=== PATIENT | female | born 2000 | race African-American/Black ===

== ENCOUNTER 2022-09-23 21:23 | Emergency (ER) | payer BC, OTHER ==
[2022-09-23 21:41] VITALS: BP 124/84; PULSE 97; RESP 20; TEMP 98.1; BMI 19.3
[2022-09-23] MEDS ORDERED: ACETAMINOPHEN 325 MG TABLET (FP) PO ONE (22:13)
[2022-09-23] MEDS ORDERED: ACETAMINOPHEN 325 MG TABLET (FP) ONE (22:46)
[2022-09-23 23:43] LABS: EPI CELLS 8 /uL (0-25.1); HCG,QUALITATIVE URINE Negative; HYALINE CASTS 0 /uL (0-3.1); PH,URINE 7.5 (5.0-8.0); URINE APPEARANCE CLEAR; URINE BACTERIA 30 /uL (0-1359); URINE BILIRUBIN NEGATIVE (NEGATIVE); URINE COLOR ORANGE; URINE GLUCOSE (UA) NEGATIVE (NEGATIVE); URINE KETONE NEGATIVE (NEGATIVE); URINE LEUK ESTERASE NEGATIVE (NEGATIVE); URINE NITRITE NEGATIVE (NEGATIVE); URINE PROTEIN TRACE (NEGATIVE); URINE RBC 3807 /uL (0-23.9); URINE WBC 10 /uL (0-25.8)
== END 2022-09-24 00:24 | disposition home or self-care (01) ==
LOC: JER 21:23
DX: N93.9 Abnormal uterine and vaginal bleeding, unspecified (principal)
CPT/HCPCS: 36415; 76830-TC; 81003; 84703; 87086; 87491; 87591; 99284-25

== ENCOUNTER 2023-01-02 23:00 | Emergency (ER) | payer OTHER ==
[2023-01-02 23:04] VITALS: BMI 19.8
[2023-01-03 01:43] VITALS: BP 120/77; PULSE 115; RESP 18
[2023-01-03] MEDS ORDERED: ACETAMINOPHEN 325 MG TABLET (FP) PO ONE (01:46)
[2023-01-03] MEDS ORDERED: ACETAMINOPHEN 325 MG TABLET (FP) ONE (01:48)
[2023-01-03] MEDS ORDERED: DEXAMETHASONE 4 MG TABLET (FP) PO ONE ×2 (02:01)
[2023-01-03] MEDS ORDERED: DEXAMETHASONE 4 MG TABLET (FP) ONE (02:04)
[2023-01-03] MEDS ORDERED: PENICILLIN G BENZATHINE 1,200,000 UNIT/2 ML PFS IM ONE ×2 (03:31→03:47)
[2023-01-03 03:53] VITALS: TEMP 99.3
== END 2023-01-03 03:56 | disposition home or self-care (01) ==
LOC: JER 23:00 → JERFT 23:00 → JER 01-03 03:56
DX: J02.0 Streptococcal pharyngitis (principal); Z20.822 Contact with and (suspected) exposure to COVID-19
CPT/HCPCS: 0241U-QW; 87070; 87077; 87651; 99284-25

== ENCOUNTER 2024-01-24 11:18 | Emergency (ER) | payer OTHER ==
[2024-01-24 11:26] VITALS: BP 121/76; PULSE 67; RESP 18; TEMP 98.9; BMI 21.7
[2024-01-24] MEDS ORDERED: FAMOTIDINE 20 MG TABLET ONE (12:17)
[2024-01-24] MEDS ORDERED: ACETAMINOPHEN 325 MG TABLET (FP) ONE (12:17)
[2024-01-24] MEDS ORDERED: MAG HYDROX/AL HYDROX/SIMETH 30 ML UNIT-DOSE CUP ONE ×2 (12:18)
[2024-01-24] MEDS: MAG HYDROX/AL HYDROX/SIMETH 30 ML UNIT-DOSE CUP PO ONE (12:30)
[2024-01-24] MEDS: FAMOTIDINE 20 MG TABLET PO ONE (12:30)
[2024-01-24] MEDS: ACETAMINOPHEN 500 MG TABLET (FP) PO ONE (12:30)
[2024-01-24] MEDS: ONDANSETRON *ODT* 4 MG TABLET SL ONE (12:31)
[2024-01-24 12:41] LABS: EPI CELLS 18 /uL (0-25.1); HYALINE CASTS 0 /uL (0-3.1); URINE APPEARANCE CLEAR; URINE BACTERIA 25 /uL (0-1359); URINE BILIRUBIN NEGATIVE (NEGATIVE); URINE COLOR YELLOW; URINE GLUCOSE (UA) NEGATIVE (NEGATIVE); URINE KETONE NEGATIVE (NEGATIVE); URINE LEUK ESTERASE NEGATIVE (NEGATIVE); URINE NITRITE NEGATIVE (NEGATIVE); URINE PROTEIN NEGATIVE (NEGATIVE); URINE RBC 120 /uL (0-23.9); URINE UROBILINOGEN 0.2 mg/dL (0.2-1.0); URINE WBC 6 /uL (0-25.8)
[2024-01-24 12:43] LABS: HCG,QUALITATIVE URINE Negative
[2024-01-24] MEDS ORDERED: ONDANSETRON *ODT* 4 MG TABLET ONE (12:43)
[2024-01-24] MEDS: SUCRALFATE 1 GM/10 ML UNIT DOSE CUPS PO ONE (13:10)
[2024-01-24] MEDS ORDERED: SUCRALFATE 1 GM TABLET (FP) ONE (13:18)
== END 2024-01-24 15:11 | disposition home or self-care (01) ==
LOC: JER 11:18
DX: R10.13 Epigastric pain (principal); R11.0 Nausea; R14.0 Abdominal distension (gaseous); K29.70 Gastritis, unspecified, without bleeding; Z20.822 Contact with and (suspected) exposure to COVID-19
CPT/HCPCS: 0241U-QW; 81003; 84703; 87086; 93005; 93010; 99284-25; Q0162